=== PATIENT | female | born 1990 | race Caucasian/White ===

== ENCOUNTER → 2018-10-26 | Outpatient (CLI) | payer BC ==
[~2018-10-26] MED LIST: BIRTHCONTROL; Percocet 7.5-31 EACH PO
[2018-10-30 15:06] LABS: HPV 16 Negative (Negative); HPV 18 Negative (Negative); HPV OTHER HR TYPES Negative (Negative)
== END | disposition home or self-care (01) ==
LOC: LAB SHORT 10:29 → LAB 10:29
PROVIDERS: Obstetrics & Gynecology
DX: Z01.419 Encounter for gynecological examination (general) (routine) without abnormal findings (principal)
CPT/HCPCS: 87624; G0123

== ENCOUNTER 2019-01-28 06:01 | Emergency (ER) | payer OTHER, BC ==
[~2019-01-28] VITALS: Ht 160 cm; Wt 113.4 kg
[~2019-01-28 06:01] MED LIST changes: -Percocet 7.5-31 EACH PO
[2019-01-28] MEDS ORDERED: Percocet 7.5-31 EACH PO (09:42)
== END 2019-01-28 10:37 | disposition home or self-care (01) ==
LOC: ER 06:01
DX: S22.42XA Multiple fractures of ribs, left side, initial encounter for closed fracture (principal); V87.8XXA Person injured in other specified noncollision transport accidents involving motor vehicle (traffic), initial encounter
CPT/HCPCS: 36415; 71260; 73030; 96374-59; 96375-59; 99284-25; J2405; J3010; Q9967